=== PATIENT | female | born 1950 | race Caucasian/White ===

== ENCOUNTER → 2017-05-01 | Outpatient (CLI) | payer OTHER, BC ==
[~2017-05-01] MED LIST: DARVOCET-N 1001 EACH PO; LEXAPRO PO; NEXIUM20 M1 PO; NORCO 5-325 TA1 EACH PO; PRISTIQ50 M1 PO
== END ==
LOC: RAD 02:22
DX: Z12.31 Encounter for screening mammogram for malignant neoplasm of breast (principal)

== ENCOUNTER → 2017-05-03 | Outpatient (CLI) | payer OTHER, BC | LOC: RAD 01:22 | DX: R92.8 Other abnormal and inconclusive findings on diagnostic imaging of breast (principal) ==

== ENCOUNTER → 2017-05-12 | Outpatient (CLI) | payer OTHER, BC ==
--- NOTE | ~2017-05-12 | S ---
[facility] [place] [address] SURGICAL PATH RPT PROCEDURE Name: KAITLIN SULLIVAN Room #: [facility].#: [id number] Admission: 05/12/17 Date of : 48 Discharge: Report #: [id number] Path Case #: [id number] PATHOLOGY REPORT COLLECTION DATE: 05/12/2017 RECEIVED DATE: 05/12/2017 SUBMITTING PHYS: Dr. Jesus Montejo OTHER PHYS: Dr. 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 - Negative for invasive carcinoma. (IUV:marti; 05/15/2017) COMMENT: Co-review: Dr. Blanca Watkins. Results are reported to Ms. Pena in our [facility] at 11:18 a.m. on 05/15/2017. ER as well as [place] is ordered, and the results of these will be sent as a scanned image. (IUV:marti; 05/15/2017) PATHOLOGIST: Haylee Winters M.D. REPORT ELECTRONICALLY SIGNED BY: Haylee Winters M.D. DATE/TIME: 05/15/2017 16:01 * * * * * * * * * * * * GROSS PATHOLOGY: Received in formalin labeled "Kaitlin Sullivan, left," and additionally labeled on requisition as, "left breast calcifications, anterior". Received are multiple needle cores of yellow-butler fibrofatty tissue measuring 3.4 x 3.2 x 0.5 cm in aggregate dimensions. The tissue is submitted in its entirety in cassettes A1 through A4. The cold ischemic time is 5 minutes. The total formalin fixation time is 12 hours and 15 minutes. ([facility]; 05/12/2017) CLINICAL HISTORY: Left breast calcifications [address] [address] SURGICAL PATH RPT PROCEDURE Name: KAITLIN SULLIVAN Room #: [facility].#: [id number] Admission: 05/12/17 Date of : 48 Discharge: Report #: [id number] Path Case #: [id number] INITIAL CPT CODE(S): A; 37105, 50773(2) Professional services performed by [facility] at [address], [place] [address] Technical services performed by [facility] at [address] [place] [address], [address] [address]. [facility] [address] [place] [id number] PHONE: [phone] DIRECTOR: Tj Pino M.D. * * * END OF REPORT * * *
== END | disposition home or self-care (01) ==
LOC: RADSTEREO 08:27
DX: C50.912 Malignant neoplasm of unspecified site of left female breast (principal)

== ENCOUNTER → 2018-05-09 | Outpatient (CLI) | payer OTHER ==
[~2018-05-09] MED LIST changes: +BRINTELLIX10 MG PO; +NEXIUM40 MG PO
== END ==
LOC: RAD 01:09
DX: R92.8 Other abnormal and inconclusive findings on diagnostic imaging of breast (principal)

== ENCOUNTER → 2018-11-29 | Outpatient (CLI) | payer OTHER | LOC: RAD 13:02 | DX: R92.8 Other abnormal and inconclusive findings on diagnostic imaging of breast (principal) ==

== ENCOUNTER → 2019-05-23 | Outpatient (CLI) | payer OTHER | LOC: RAD 12:56 | DX: R92.8 Other abnormal and inconclusive findings on diagnostic imaging of breast (principal) ==

== ENCOUNTER → 2020-05-18 | Outpatient (CLI) | payer OTHER | LOC: BC 09:52 | PROVIDERS: ATTEND Internal Medicine | DX: Z12.31 Encounter for screening mammogram for malignant neoplasm of breast (principal) ==

== ENCOUNTER → 2021-05-19 | Outpatient (CLI) | payer OTHER | LOC: BC 11:42 | PROVIDERS: ATTEND Internal Medicine | DX: Z12.31 Encounter for screening mammogram for malignant neoplasm of breast (principal) ==